=== PATIENT | male | born 1975 | race African-American/Black ===

== ENCOUNTER 2017-02-28 11:49 | Emergency (ER) | payer OTHER ==
--- NOTE | 2017-02-28 12:03 | CPEKG ---
Heart Rate: 53 RR Interval: 1132 P-R Interval: 204 QRSD Interval: 96 QT Interval: 388 QTC Interval: 365 P Knickerbocker: -4 QRS Knickerbocker: 19 T Wave Knickerbocker: -34 EKG Severity - ABNORMAL ECG - EKG Impression: SINUS RHYTHM EKG Impression: ABNORMAL T, CONSIDER ISCHEMIA, DIFFUSE LEADS Electronically Signed By: Geetha Perez 28-Feb-2017 15:31:40
--- NOTE | 2017-02-28 12:22 | EDPHY ---
H & P Stated Complaint: Sent from PCP for eval SOB and abnl EKG Time Seen by Provider: 02/28/17 12:06 HPI/ROS: CHIEF COMPLAINT: Chest pressure, short of breath HISTORY OF PRESENT ILLNESS: This is a 41-year-old male who was started on Toprol and Xarelto 1 week ago for atrial flutter. He was seen by his primary care physician because of a rapid heart rate, found to be in atrial flutter, and started on the above medications. On the following day he had an episode of chest pain and has had intermittent chest pressure since then. He has noticed some shortness of breath. Since starting the metoprolol and the Xarelto he has had some hand swelling and abdominal bloating--both of these have improved but not entirely resolved. He denies any calf pain or swelling. He does not use tobacco products. He has a family history of diabetes and hypertension, no history of early coronary artery disease. He saw his primary care doctor again today because of the shortness of breath and chest pressure and was referred to the emergency room for further evaluation including blood work and echocardiogram. REVIEW OF SYSTEMS: A ten point review of systems was performed and is negative with the exception of the items mentioned in the HPI. - Personal History Current Tetanus Diphtheria and Acellular Pertussis (TDAP): Yes - Medical/Surgical History PMH: 1. Diverticulitis 2. Atrial flutter Hx Asthma: No Hx Chronic Respiratory Disease: No Hx Diabetes: No Hx Cardiac Disease: No Hx Renal Disease: No Hx Cirrhosis: No Hx Alcoholism: No Hx HIV/AIDS: No Hx Splenectomy or Spleen Trauma: No Other PMH: Diverticulitis - Social History Smoking Status: Never smoked Additional Social History: He is . He works for [employer]. - Physical Exam Exam: General Appearance: Alert. Vital signs reviewed. HR 59. Eyes: Pupils equal and round, no conjunctival injection, no discharge. Anicteric. ENT, Mouth: Mucous membranes are moist, no oropharyngeal erythema or edema. Neck: No lymphadenopathy, supple. Respiratory: Lungs are clear to auscultation; no wheezes, rales, or rhonchi. Cardiovascular: Bradycardic it just under 60; no murmur, rub, or gallop. Gastrointestinal: Abdomen is soft and nontender, no masses or organomegaly, bowel sounds normal. Skin: Warm and dry, no rashes on exposed skin, normal color. Back: Nontender to palpation over the thoracolumbar spine. No CVAT. Extremities: No lower extremity edema, no calf tenderness or swelling. Neurological: Alert and oriented. Moving all four extremities easily and equally. Psychiatric: Normal affect. Constitutional: Initial Vital Signs Temperature (C) 37 C 02/28/17 11:50 Heart Rate 59 L 02/28/17 11:50 Respiratory Rate 18 02/28/17 11:50 Blood Pressure 108/75 02/28/17 11:50 O2 Sat (%) 94 02/28/17 11:50 O2 Delivery Mode Room Air Allergies/Adverse Reactions: No Known Allergies Allergy (Verified 02/28/17 11:55) Home Medications: Medication Instructions Recorded Metoprolol Succinate Xr [Toprol Xl 50 mg PO DAILY 02/28/17 50 mg (*)] Rivaroxaban [Xarelto 10mg (*)] 02/28/17 Medical Decision Making - Diagnostics EKG Interpretation: 12 lead EKG is interpreted in Trace master View by emergency department physician. T-wave inversion. Imaging: I viewed and interpreted images myself ED Course/Re-evaluation: Patient is not experiencing chest pain or shortness of breath in the emergency department. He does report some chest tightness but states that it is not painful. Blood work including CBC, chemistries, troponin, BNP, D-dimer are all within normal limits with the exception of a slightly low white blood cell count and a very mild elevation in his calcium. Chest x-ray does not show acute pulmonary disease/infection. Echocardiogram shows an ejection fraction of 50%. He does not have signs of heart failure, but EF suggest left ventricular systolic dysfunction. Please see full report. PE unlikely with his Wells score (zero), making PE low probability. I spoke with Dr. Denilson Kingsley about the workup in the emergency department. He is comfortable with this patient returning home and following up with Cardiology in their office. I reviewed the danger signs that should prompt the patient to seek immediate medical attention. I have given copies of his echocardiogram the, EKGs, and blood work to him and recommended that he carry him on his travels. He plans to travel to [place] tomorrow. Differential Diagnosis: Chest pain including but not limited to myocardial ischemia, pulmonary embolus, chest wall pain, pleural inflammation and pulmonary infectious causes. - Data Points Laboratory Results: Laboratory Results 02/28/17 12:10 02/28/17 12:10 Departure - Departure Disposition: Home, Routine, Self-Care Clinical Impression: Chest pain Condition: Good Instructions: Chest Pain (ED) Additional Instructions: Carry your EKGs, blood work, and echocardiogram results with you when you travel. If you develop worsening chest pain, trouble breathing, lightheadedness, any new or concerning symptoms--you should be re-evaluated immediately. Follow up in Dr. Stewart's office. Referrals: TEMI STEWART [Primary Care Provider] - As per Instructions
[2017-02-28 12:44] LABS: % IMMATURE GRANULYOCYTES 0.3 % (0.0-1.1); ABSOLUTE IMMATURE GRANULOCYTES 0.01 10^3/uL (0.00-0.10); ADD DIFF? NO; ADD MORPH? NO; ADD SCAN? NO; ATYPICAL LYMPHOCYTE FLAG 10 (0-99); FRAGMENT RBC FLAG 0 (0-99); HEMATOCRIT 48.3 % (40.0-51.0); HEMOGLOBIN 16.7 g/dL (13.7-17.5); LEFT SHIFT FLG 0 (0-99); LIPEMIA HEMOLYSIS FLAG 90 (0-99); MEAN CELL HEMOGLOBIN 29.2 pg (27.9-34.1); MEAN CELL HEMOGLOBIN CONCENTR. 34.6 g/dL (32.4-36.7); MEAN CELL VOLUME 84.4 fL (81.5-99.8); MEAN PLATELET VOLUME 9.7 fL (8.7-11.7); PLATELET CLUMPS FLAG 10 (0-99); PLATELET COUNT 285 10^3/uL (150-400); RED BLOOD CELL COUNT 5.72 10^6/uL (4.40-6.38); RED CELL DISTRIBUTION WIDTH 12.3 % (11.5-15.2)
[2017-02-28 12:52] LABS: ANION GAP 15 mEq/L (8-16); CALCIUM 10.5 mg/dL (8.5-10.4); CARBON DIOXIDE 22 mEq/l (22-31); CHLORIDE 105 mEq/L (97-110); CREATININE 0.9 mg/dL (0.7-1.3); GLOMERULAR FILTRATION RATE > 60; GLUCOSE 89 mg/dL (70-100); POTASSIUM 4.9 mEq/L (3.5-5.2); SODIUM 142 mEq/L (134-144)
[2017-02-28 13:04] LABS: TROPONIN I < 0.012 ng/mL (0-0.034)
--- NOTE | 2017-02-28 13:39 | ECHO ---
[id number] + + [address] : : [place] [address] : : [phone] + + Adult Echocardiographic Report + -----+ :Name: ASTON GERMAIN TStudy Date: 02/28/2017 12:42 PM : : Hospital Admission Number: [id number] Location: 11: :: 1975 Gender: Male Height: 71 in : :Age: 41 yrs Race: BAA Weight: 226 lb : :Reason For Study: chest pain : : BSA: 2.2 meters2 : :History: chest pain; ekg changes; aflutter : + -----+ MMode/2D Measurements \T\ Calculations IVSd: 0.99 cm RVDd: 2.9 cm FS: 30.1 % Ao root diam: LVPWd: 1.1 cm LVIDd: 5.2 cm EDV(Teich): 3.1 cm LVIDs: 3.6 cm 128.4 ml LA dimension: ESV(Teich): 4.2 cm 55.2 ml EF(Teich): 57.0 % LVLd ap4: 9.2 cm SV(MOD-sp4): EDV(MOD-sp4): 81.0 ml 162.0 ml LVLs ap4: 8.3 cm ESV(MOD-sp4): 81.0 ml EF(MOD-sp4): 50.0 % Normal Measurement Values: + + :LVIDd (3.5-5.7cm) IVSd (0.6-1.1cm) LVPWd (0.6-1.1cm) Aortic Root (2.0-3.7cm)Left Atrium (1.5-4.0cm): :LV Vol(d) (76-115ml) LV Vol(s) (29-48ml) Ejec Fraction (50-65%)PV Syed (0.6- 1.2m/s) TV Syed (0.4-1.0m/s) : :MV E Syed (0.8-1.0m/s)MV A Syed (0.3-1.0m/s)LVOT Syed (0.7-1.2m/s) Asc Ao Syed ( 0.9-1.8m/s) : + + Doppler Measurements \T\ Calculations MV E max syed: Ao V2 max: LV V1 max: PA V2 max: 41.5 cm/sec 111.0 cm/sec 75.7 cm/sec 76.0 cm/sec MV A max syed: Ao max P.9 mmHg LV V1 max PG: PA max P.1 cm/sec 2.3 mmHg 2.3 mmHg MV E/A: 1.5 MV dec time: 0.27 sec Left Ventricle The left ventricle is normal in size. There is borderline concentric left ventricular hypertrophy. Left ventricular systolic function is low normal. Ejection Fraction = 50%. No regional wall motion abnormalities noted. Right Ventricle The right ventricle is normal in size and function. Atria The left atrium is mildly dilated. The Left Atrial Volume is 38 ml/m2. Right atrial size is normal. Mitral Valve The mitral valve is normal in structure and function. There is no mitral valve stenosis. There is trace to mild mitral regurgitation. Tricuspid Valve The tricuspid valve is normal in structure and function. There is no tricuspid stenosis. No tricuspid regurgitation. Aortic Valve The aortic valve is trileaflet. There is no aortic stenosis. There is no aortic insufficiency. Pulmonic Valve The pulmonic valve is normal in structure and function. Mild pulmonic valvular regurgitation. Great Vessels The aortic root is normal size. Pericardium/Pleural There is no pericardial effusion. Conclusion A two-dimensional transthoracic echocardiogram with M-mode and Doppler was performed. There is borderline concentric left ventricular hypertrophy. Left ventricular systolic function is low normal. Ejection Fraction = 50%. The left atrium is mildly dilated. The Left Atrial Volume is 38 ml/m2. Normal appearing valvular structures. There is trace to mild mitral regurgitation. Mild pulmonic valvular regurgitation. Final Reading Physician: Gi Peterson signed on 02/28/2017 01:38 PM Ordering Physician: MITCHELL BRIZUELA Performed By: Nay Leo
[2017-02-28 14:41] VITALS: O2SAT 98
[2017-02-28 15:27] VITALS: BP 106/82; PULSE 60; RESP 14; TEMP 98.4
== END 2017-02-28 15:27 | disposition home or self-care (01) ==
DX: R07.9 Chest pain, unspecified (principal)